=== PATIENT | female | born 2000 | race Caucasian/White ===

== ENCOUNTER 2021-10-01 21:51 | Emergency (ER) | payer SELFPAY ==
[2021-10-01 23:24] VITALS: BP 155/107; PULSE 66; RESP 15; TEMP 36.6; O2SAT 98; BMI 39.3
--- NOTE | 2021-10-02 02:34 | W.ED.GENADLT ---
HPI - General Adult General: Chief complaint: General Medical Stated complaint: wanting test Time Seen by Provider: 10/02/21 02:20 History of Present Illness: To have a normalPatient comes in today for concerns of . Patient had a irregular period this month with only some light spotting around 14 September.. At 12 August. Patient denies any other concerns. Patient appears nontoxic and in no pain. Associated symptoms: Deny chest pain or dyspnea Review of Systems General: Reports: 10 or more systems reviewed and unremarkable except in HPI and below Card: Denies: chest pain Resp: Denies: dyspnea : Reports: irregular period Physical Exam Const: COMMON NORMALS: no acute distress HENMT: COMMON NORMALS: normocephalic HEAD & SCALP: normocephalic Neck/C-Spine: COMMON NORMALS: full ROM Resp: COMMON NORMALS: normal respiratory effort and clear to auscultation bilaterally AUSCULTATION: clear to auscultation bilaterally Cardio: COMMON NORMALS: regular rate and regular rhythm RATE: regular rate RHYTHM: regular rhythm Extremity: COMMON NORMALS: normal to inspection Skin: COMMON NORMALS: no rashes or lesions noted GENERAL SKIN EXAM: no rashes or lesions noted Course Vital Signs: Vital signs: Vital Signs Temperature 97.9 F 10/01/21 23:24 Pulse Rate 66 10/01/21 23:24 Respiratory Rate 15 10/01/21 23:24 Blood Pressure 155/107 10/01/21 23:24 Pulse Oximetry 98 10/01/21 23:24 [facility] - General Adult Medical Decision Making Patient came in today for complaints of spotting with her last period. Patient thinks that she may be . Exam was unremarkable. Vital signs did note some mild elevation in blood pressure. Differential diagnosis includes irregular menstrual cycle, , worried well. test was negative. Encourage patient to drink plenty of fluids and follow-up with primary care for further instructions. Encourage a multivitamin and to avoid smoking and alcohol while attempting to get . Lab Data Laboratory Results Urine HCG, Qual Negative (Negative) 10/02/21 02:20 Discharge Plan Discharge Patient Disposition: Home Clinical Impression: Irregular menstrual cycle Condition: Stable Discharge Orders: Discharge ED (Routine); Ordered 10/02/21 Ordered By: Benson Collazo Discharge Diet: Usual diet Discharge Activity: Increase activity as tolerated Activity Restrictions/Additional Instructions: Drink plenty of water. Healthy diet and activity. Follow-up with primary care for further instructions. Return to ER for new concerns. If you are trying to get is recommended that you take a daily multivitamin, avoid smoking and drinking and any drugs. Coding Level of Care Code ED [employer] for Sandy Sánchez
== END 2021-10-02 03:05 | disposition home or self-care (01) ==
PROVIDERS: Emergency Provider Nurse Practitioner Family
DX: N92.6 Irregular menstruation, unspecified (principal)
CPT/HCPCS: 81025; 99282